=== PATIENT | male | born 1985 | race Caucasian/White ===

== ENCOUNTER 2022-08-13 10:48 | Outpatient (CLI) | payer OTHER, SELFPAY ==
[2022-08-13 21:32] LABS: Albumin* 4.8 g/dL (3.3-5.0); Chloride* 103 mmol/L (96-114)
[2022-08-13 21:33] LABS: Potassium* 4.9 mmol/L (3.6-5.1); Sodium* 140 mmol/L (135-149)
[2022-08-13 21:35] LABS: Bilirubin Total* 0.6 mg/dL (0.1-1.5); Creatinine* 0.7 mg/dL (0.5-1.5); Estimated Glomerular Filt Rate 122 ml/min
[2022-08-13 21:36] LABS: Alanine Aminotransferase* 17 U/L (4-50); Alkaline Phosphatase* 79 U/L (40-150); Aspartate Amino Transferase* 26 U/L (12-35); Blood Urea Nitrogen* 22 mg/dL (5-24); Calcium* 9.2 mg/dL (8.4-10.6); Carbon Dioxide* 30 mmol/L (20-32); Glucose* 88 mg/dL (60-115); Total Protein* 7.7 g/dL (6.0-8.3)
[2022-08-13 22:04] LABS: C Reactive Protein* < 0.5 mg/dL (0.5-1.0)
[2022-08-13 22:22] LABS: Vitamin B12* 837 pg/mL (243-894)
== END 2022-08-13 10:49 | disposition home or self-care (01) ==
PROVIDERS: PCP Physician Assistant Medical; Visit Provider Emergency Medicine
DX: R53.81 Other malaise (principal); F41.9 Anxiety disorder, unspecified
CPT/HCPCS: 80053; 82607; 84443; 86140

== ENCOUNTER 2022-08-19 12:40 | Outpatient (CLI) | payer OTHER, SELFPAY ==
--- NOTE | 2022-08-19 13:00 | CRLHL7_ITS ---
For Patients: As a result of the Century Cures Act, medical imaging exams and procedure reports are released immediately into your electronic medical record. You may view this report before your referring provider. If you have questions, please contact your health care provider. INDICATION: PRUETT ON AND OFF X 1 YEAR. Tinnitus COMPARISON: none TECHNIQUE: A CT volumetric acquisition was performed of the brain without IV contrast. Please note that all CT scans at this facility use dose modulation, iterative reconstruction, and/or weight-based dosing when appropriate to reduce radiation dose to as low as reasonably achievable. FINDINGS: The CT images reveal a normal appearance of the cerebral ventricles and basal cisterns. There is no evidence of intracranial hemorrhage, tissue infarction or mass effect. The mastoid air cells and middle ear cavities are clear. The calvarium appears intact. There is normal aeration of the visualized paranasal sinuses. IMPRESSION: Negative head CT. Please note that all CT scans at this facility use dose modulation, iterative reconstruction, and/or weight-based dosing when appropriate to reduce radiation dose to as low as reasonably achievable. Dictated by Ganesh Duarte MD @ 08/19/2022 1:07:30 PM (Electronically Signed)
== END 2022-08-19 12:41 | disposition home or self-care (01) ==
LOC: CT 12:42
PROVIDERS: PCP Physician Assistant Medical; Visit Provider Emergency Medicine
DX: R51.9 Headache, unspecified (principal); H93.19 Tinnitus, unspecified ear
CPT/HCPCS: 70450